=== PATIENT | male | born 1965 | race Two or more races ===

== ENCOUNTER → 2019-08-14 | Outpatient (CLI) | payer OTHER | END | disposition home or self-care (01) | LOC: RAD 10:29 | DX: E03.8 Other specified hypothyroidism (principal); E04.2 Nontoxic multinodular goiter; R07.89 Other chest pain ==

== ENCOUNTER 2021-05-30 11:22 | Outpatient (CLI) | payer OTHER | END 2021-05-30 16:03 | disposition home or self-care (01) | LOC: SONOGRAMA 11:22 | DX: E06.0 Acute thyroiditis (principal); E03.8 Other specified hypothyroidism ==